=== PATIENT | male | born 1995 | race Caucasian/White ===

== ENCOUNTER 2018-03-24 17:49 | Emergency (ER) | payer SELFPAY ==
[~2018-03-24] VITALS: Ht 182.9 cm; Wt 69.7 kg
[2018-03-24 18:21] LABS: BASOPHILS # (AUTO) 0.03 x10^3/uL (0-0.1); BASOPHILS % (AUTO) 0 % (0-1); EOSINOPHILS # (AUTO) 0.17 x10^3/uL (0-0.4); EOSINOPHILS % (AUTO) 2 % (1-7); LYMPHOCYTES # (AUTO) 2.57 x10^3/uL (1-3.4); LYMPHOCYTES % (AUTO) 35 % (22-44); MD NO; MEAN CORPUSCULAR HEMOGLOBIN 32.5 pg (27.5-34.5); MEAN CORPUSCULAR HGB CONC 34.4 g/dL (33.2-36.2); MEAN CORPUSCULAR VOLUME 94.6 fL (81-97); MEAN PLATELET VOLUME 7.5 fL (7.4-10.4); MONOCYTES # (AUTO) 0.37 x10^3/uL (0.2-0.8); MONOCYTES % (AUTO) 5 % (2-9); NEUTROPHILS # (AUTO) 4.21 x10^3/uL (1.8-6.8); NEUTROPHILS % (AUTO) 57 % (42-75); PLATELET COUNT 277 x10^3/uL (130-400); RED BLOOD COUNT 4.83 x10^6/uL (4.38-5.82); RED CELL DISTRIBUTION WIDTH 12.7 % (9.4-14.8)
[2018-03-24 18:32] LABS: ALANINE AMINOTRANSFERASE 22 U/L (12-78); ANION GAP 9 mmol/L (5-15); CALCIUM 7.9 mg/dL (8.5-10.1); CHLORIDE 112 mmol/L (98-107); SALICYLATE LEVEL 2.4 mg/dL (2.8-20.0)
[2018-03-24 18:35] LABS: ALKALINE PHOSPHATASE 83 U/L (45-117); BILIRUBIN,TOTAL 0.3 mg/dL (0.2-1.0); CREATININE 0.79 mg/dL (0.7-1.3); TOTAL PROTEIN 7.5 g/dL (6.4-8.2)
[2018-03-24 18:36] LABS: ACETAMINOPHEN < 2 mcg/mL (10-30)
[2018-03-24 19:27] LABS: MICROSCOPIC NOT IND
[2018-03-24 19:28] LABS: CULTURE INDICATED? NO
[2018-03-24 19:39] LABS: AMPHETAMINE SCREEN, URINE Negative (Negative); BARBITURATE SCREEN, URINE Negative (Negative); BENZODIAZEPINE SCREEN, URINE Positive (Negative); CANNABINOID SCREEN, URINE Negative (Negative); COCAINE SCREEN, URINE Negative (Negative); METHADONE SCREEN, URINE Negative (Negative); OPIATE SCREEN, URINE Negative (Negative)
[2018-03-24] MEDS ORDERED: SODIUM CHLORIDE 0.9% 1,000ML IVBOLUS ONE (20:00)
[2018-03-24] MEDS ORDERED: ZIPRASIDONE 20 MG INJ IM ONE ×3 (21:30→22:00)
[2018-03-24] MEDS ORDERED: LORazepam 2 MG/ML, 1ML IM ONE (21:30)
[2018-03-24] MEDS ORDERED: LEVO25TA4 PO (23:36)
[2018-03-25] MEDS ORDERED: IBUPROFEN 200 MG TABLET ONE (04:47)
[2018-03-25] MEDS ORDERED: IBUPROFEN 200 MG TABLET PO ONE (05:00)
[2018-03-25] MEDS ORDERED: ACETAMINOPHEN 325 MG TABLET PO ONE (09:30)
[2018-03-25] MEDS ORDERED: ACETAMINOPHEN 325 MG TABLET ONE (09:50)
[2018-03-25 11:50] VITALS: BP 120/67
== END 2018-03-25 12:35 | disposition home or self-care (01) ==
LOC: ED 19:08
DX: F32.9 Major depressive disorder, single episode, unspecified (principal)
CPT/HCPCS: 36415; 80053; 80307; 80329; 81003; 85025; 96372; 99284; J3486; J7030; G0480

== ENCOUNTER 2021-07-03 05:55 | Emergency (ER) | payer OTHER ==
[~2021-07-03] VITALS: Ht 172.7 cm; Wt 67.0 kg
[~2021-07-03 05:55] MED LIST: LEVO25TA4 PO
[2021-07-03 06:42] LABS: BASOPHILS % (AUTO) 0 % (0-1); EOSINOPHILS % (AUTO) 1 % (1-7); LYMPHOCYTES % (AUTO) 30 % (22-44); MEAN CORPUSCULAR HEMOGLOBIN 32.5 pg (27.5-34.5); MEAN CORPUSCULAR HGB CONC 34.8 g/dL (33.2-36.2); MEAN PLATELET VOLUME 7.4 fL (7.4-10.4); MONOCYTES % (AUTO) 3 % (2-9); NEUTROPHILS % (AUTO) 66 % (42-75); PLATELET COUNT 306 x10^3/uL (130-400); RED BLOOD COUNT 4.94 x10^6/uL (4.38-5.82)
--- NOTE | 2021-07-03 06:47 | NUR ---
report from OTTONIEL Mcdonald
[2021-07-03 06:50] LABS: ALANINE AMINOTRANSFERASE 29 U/L (12-78); ALBUMIN 4.1 g/dL (3.4-5.0); ANION GAP 9 mmol/L (5-15); CALCIUM 8.4 mg/dL (8.5-10.1); CHLORIDE 107 mmol/L (98-107); CREATININE 0.76 mg/dL (0.7-1.3)
[2021-07-03 06:52] LABS: ALKALINE PHOSPHATASE 84 U/L (45-117); BILIRUBIN,TOTAL 0.3 mg/dL (0.2-1.0); TOTAL PROTEIN 8.3 g/dL (6.4-8.2)
--- NOTE | 2021-07-03 07:19 | NUR ---
PT AMBULATORY TO BR WITH UPRIGHT STEADY GAIT
[2021-07-03 07:23] VITALS: BP 125/72
--- NOTE | 2021-07-03 07:24 | NUR ---
PT TO XR
--- NOTE | 2021-07-03 07:35 | NUR ---
PT BACK FROM XR
--- NOTE | 2021-07-03 08:06 | NUR ---
ERP AT FOR RECHECK
--- NOTE | 2021-07-03 08:15 | NUR ---
Patient given discharge instructions and rx, they have confirmed that they understand the instructions. Patient ambulatory with steady gait.
== END 2021-07-03 08:17 | disposition home or self-care (01) ==
LOC: ED 07:58
DX: B34.9 Viral infection, unspecified (principal); Z20.822 Contact with and (suspected) exposure to COVID-19; J40 Bronchitis, not specified as acute or chronic; R11.2 Nausea with vomiting, unspecified; R06.02 Shortness of breath
CPT/HCPCS: 36415; 71045; 74021; 80053; 85025; 99284; U0003; U0005